=== PATIENT | male | born 1995 | race Two or more races ===

== ENCOUNTER 2019-06-12 02:33 | Emergency (ER) | payer SELFPAY ==
[~2019-06-12] VITALS: Ht 172.7 cm; Wt 90.7 kg
[2019-06-12] MEDS ORDERED: IBUPROFEN 800 MG TAB PO ONE (05:15)
[2019-06-12 08:08] VITALS: BP 145/78
[2019-06-12] MEDS ORDERED: HYDROcodone-ACET 10/325MG TAB PO ONE (08:30)
== END 2019-06-12 08:46 | disposition home or self-care (01) ==
LOC: EDBD 02:33 → ER 02:33
DX: S00.83XA Contusion of other part of head, initial encounter (principal); M54.2 Cervicalgia; V49.59XA Passenger injured in collision with other motor vehicles in traffic accident, initial encounter; Y93.89 Activity, other specified; Y99.8 Other external cause status; Y92.410 Unspecified street and highway as the place of occurrence of the external cause
CPT/HCPCS: 36415; 70450; 71045; 72125; 80320; 99284; J7030